=== PATIENT | female | born 1985 | race Caucasian/White ===

== ENCOUNTER 2016-08-16 22:20 | Emergency (ER) | payer BC | END 2016-08-16 22:51 | disposition home or self-care (01) | LOC: ER 22:20 | DX: H65.02 Acute serous otitis media, left ear (principal); J02.9 Acute pharyngitis, unspecified; Z79.3 Long term (current) use of hormonal contraceptives; Z87.19 Personal history of other diseases of the digestive system | CPT/HCPCS: 99282 ==